=== PATIENT | female | born 1965 | race Caucasian/White ===

== ENCOUNTER 2018-01-04 17:36 | Emergency (ER) | payer BC ==
--- NOTE | 2018-01-04 17:47 | UC ---
Complaint Female HPI - HPI Summary HPI Summary: 52 y/o female presents to the urgent care c/o rash under her breast and on her groin for the past 2 weeks. Rash began under her breast w/ a lot of itchiness after a hot day. She applied baby diaper topical crea, OTC creams and corn starch w/o any improvement. Then she noticed rash began in her groin about 1 week ago. Seh has been itching so much that now it lr and she is very uncomfortable. Pt denies fever, Hx of DM, SOB, chest pain, abdominal pain, N/V/ D. - History Of Current Complaint Stated Complaint: RASH Time Seen by Provider: 01/04/18 17:45 Hx Obtained From: Patient Onset/Duration: Gradual Onset, Lasting Weeks - 2 weeks, Still Present, Worse Since - 1 week Timing: Constant Severity Initially: Mild Severity Currently: Moderate Pain Intensity: 0 Pain Scale Used: 0-10 Numeric Character: Not Applicable Aggravating Factor(s): Other - itchiness Alleviating Factor(s): Nothing Associated Signs And Symptoms: Positive: Negative. Negative: Fever, Back Pain, Vaginal Bleeding/Discharge, Vaginal Discharge, Genital Swelling, Genital Blisters - Risk Factors Ectopic Risk Factor: Negative - Allergies/Home Medications Allergies/Adverse Reactions: Allergies Allergy/AdvReac Type Severity Reaction Status Date / Time No Known Allergies Allergy Verified 01/04/18 17:49 Home Medications: Home Medications Cholecalciferol TAB* [Vitamin D TAB*] 1,000 units PO DAILY 01/04/18 [History Confirmed 01/04/18] PMH/Surg Hx/FS Hx/Imm Hx Previously Healthy: Yes Endocrine History: Dyslipidemia Other Endocrine History: ACNE Cardiovascular History: Hypertension - Surgical History Surgical History: Yes Surgery Procedure, Year, and Place: sinus surgery 16 yrs ago, c section x 2, nasal surgery, d & c - Family History Known Family History: Positive: Cardiac Disease, Hypertension - Social History Occupation: Employed Full-time Lives: With Family Alcohol Use: Rare Substance Use Type: None Review of Systems Constitutional: Negative Skin: Rash - under her b/l breast and groin / redness and itchiness Eyes: Negative ENT: Negative Respiratory: Negative Cardiovascular: Negative Gastrointestinal: Negative Genitourinary: Negative Motor: Negative Neurovascular: Negative Musculoskeletal: Negative Neurological: Negative Psychological: Negative Is Patient Immunocompromised?: No All Other Systems Reviewed And Are Negative: Yes Physical Exam - Summary Physical Exam Summary: Vital Signs Reviewed: Yes General: well appearing, well nourished obese female in no acute apparent pain distress, sitting comfortably on examining table Eye Exam: Normal Eyes: Positive: Conjunctiva Clear - PERRLA< EOMI, fundi grossly normal ENT: Positive: Normal ENT inspection, Hearing grossly normal, Pharynx normal, TMs normal Neck: Positive: Supple, Nontender, No Lymphadenopathy Respiratory: Positive: Chest non-tender, Lungs clear, Normal breath sounds, No respiratory distress Cardiovascular: Positive: RRR, No Murmur, Pulses Normal, Brisk Capillary Refill Abdomen Description: Positive: Nontender, No Organomegaly, Soft. Negative: CVA Tenderness (R), CVA Tenderness (L) Bowel Sounds: Positive: Present Musculoskeletal: Positive: Strength Intact, ROM Intact, No Edema Neurological: Positive: Alert, Muscle Tone Normal Psychological Exam: Normal Skin: Positive: upper abdomen just under both breasts with an erythematous scaling patches with raised borders and satellite papules, also b/L upper thights shiny erythematous patches with satellite lesions spreading to labia majora. non tender to palpation, no discharge observed, no swelling. Triage Information Reviewed: Yes Complaint Female Dx - Course Course Of Treatment: 52 y/o female presents to the urgent care c/o rash under her breast and on her groin for the past 2 weeks. Rash began under her breast w / a lot of itchiness after a hot day. She applied baby diaper topical crea, OTC creams and corn starch w/o any improvement. Then she noticed rash began in her groin about 1 week ago. Seh has been itching so much that now it lr and she is very uncomfortable. Pt denies fever, Hx of DM, SOB, chest pain, abdominal pain, N/V/D. Hx obtained. Pt w/ probably contact dermatitis and nancy corporis on examination. Pt Rx Prednisone PO and Benadryl PO and traimcinolone cream and Ketaconozole cream. D/C instructions explained and advised to f/u with her PCP or [employer] [facility] [employer] Dr Mariee if not improvement of symptoms.Pt's BP is elevated today advised to decrease salt in diet, monitor BP and f/u with PCP for further management. Pt understood and agreed with plan of care. - Differential Dx/Diagnosis Differential Diagnosis/HQI/PQRI: Cervicitis, Other - tinea Provider Diagnoses: 1- Contact dermatitis. 2- Tinea Corporis. 3-Uncontrolled HTN Discharge - Sign-Out/Discharge Documenting (check all that apply): Patient Departure - D/C home All imaging exams completed and their final reports reviewed: No Studies - Discharge Plan Condition: Stable Disposition: HOME Prescriptions: diPHENhydraMINE PO* [Benadryl PO 25 MG TAB*] 25 mg PO Q6H PRN #30 tab PRN Reason: pruritus Ketoconazole 2 % CREAM (NF) [Nizoral 2% CREAM (NF)] 1 applic TOPICAL BID #1 tube predniSONE TAB* [Deltasone 20 MG TAB*] 20 mg PO DAILY #11 tab Triamcinolone 0.1% CREAM(NF) [Kenalog 0.1% Cream (NF)] 1 applic TOPICAL BID #1 tube Patient Education Materials: Contact Dermatitis (ED), Tinea Corporis (ED), Low- Sodium Diet (ED) Referrals: Luis aJimes MD [Primary Care Provider] - 3 Days Brigitte Mariee [Medical Doctor] - If Needed Additional Instructions: 1-Please take Prednisone PO taper dose to alleviate symptoms 2- Take Benadryl PO to alleviate itchiness. Apply triamcinolone topical cream as directed. Wear only cotton underwear 3- Apply Ketaconazole topical cream as directed 4-If symptoms do not improve or worsen please f/u with your PCP or [facility] in 3 days for further evaluation and treatment. 5-Your BP is elevated today. please decrease salt in your diet, monitor BP and if it continues to be elevated please f/u with your PCP for further management - Billing Disposition and Condition Condition: STABLE Disposition: Home
[2018-01-04 17:49] VITALS: BP 142/92
== END 2018-01-04 18:20 | disposition home or self-care (01) ==
LOC: UCEAST 17:36
DX: L25.9 Unspecified contact dermatitis, unspecified cause (principal); B35.4 Tinea corporis; I10 Essential (primary) hypertension
CPT/HCPCS: 99211; G0463